=== PATIENT | female | born 1945 | race Caucasian/White ===

== ENCOUNTER 2018-11-18 08:00 | Inpatient (IN) ==
[2018-11-18] MEDS ORDERED: PROPOFOL 1,000 MG/100 ML BOTTLE IV ONE (08:23)
[2018-11-18] MEDS: PROPOFOL 1,000 MG/100 ML BOTTLE IV SCH ×2 (08:27→20:04)
[2018-11-18] MEDS ORDERED: MEROPENEM 1,000 MG in SODIUM CHLORIDE 0.9% 100 ML IV STA (08:58)
[2018-11-18 09:01] LABS: ABG Base Excess 5.5 MMOL/L (-2.5-2.5); ABG HCO3 28.3 MMOL/L (20-26); ABG Oxygen Saturation 99.2 % (95-100); ABG PH 7.525 (7.35-7.45); ABG PO2 179.7 MM HG (80-95); ABG TCO2 29.3 MMOL/L (23-27)
[2018-11-18] MEDS ORDERED: ONDANSETRON 4 MG/2 ML VIAL IV PRN (09:20)
[2018-11-18] MEDS ORDERED: ACETAMINOPHEN 325 MG TABLET PO PRN (09:20)
[2018-11-18] MEDS ORDERED: ALBUTEROL 2.5 MG/3 ML NEB RESP TX PRN (09:20)
[2018-11-18] MEDS ORDERED: PROPOFOL 1,000 MG/100 ML BOTTLE IV SCH (09:30)
[2018-11-18] MEDS: LACTATED RINGERS 1,000 ML IV SCH ×2 (10:51→20:51)
[2018-11-18] MEDS: PANTOPRAZOLE 40 MG VIAL IV SCH (10:52)
[2018-11-18 11:04] LABS: Calcium 8.1 MG/DL (8.5-10.1); Osmolality,Calculated 270.5 MOS/KG (273-304); Potassium 3.6 MMOL/L (3.5-5.1)
[2018-11-18 12:15] LABS: Basophils % 0.2 % (0.0-0.8); Hemoglobin 12.3 GM/DL (12.0-16.0); Immature Granulocytes % 0.6 %; Immature Granulocytes Absolute 0.09 #; Lymphocytes # 0.6 10*3/uL (1.4-4.0); Lymphocytes % 4.1 % (21.3-54.2); Mean Corpuscular HGB Conc 30.8 GM/DL (32-36); Mean Corpuscular Hemoglobin 28 PG (27-34); Mean Corpuscular Volume 91.1 FL (87-102); Mean Platelet Volume 10.2 FL (9.6-12.0); Monocytes # 1.5 10*3/uL (0.11-0.8); Neutrophils # 12.7 10*3/uL (1.4-7.4); Neutrophils % 85.1 % (38.7-73.9); Platelet Count 207 T/CUMM (130-400); Red Blood Count 4.39 MC/CUMM (3.8-5.5); Red Cell Distribution Width 13.3 % (9.3-17.3); White Blood Count 14.9 T/CUMM (4-12)
[2018-11-18 12:29] LABS: Albumin 2.5 G/DL (3.4-5.0); Bilirubin,Total 0.7 MG/DL (0.2-1.0); Calcium 8.7 MG/DL (8.5-10.1); Osmolality,Calculated 267.7 MOS/KG (273-304); Potassium 4.3 MMOL/L (3.5-5.1); Total Protein 6.7 G/DL (6.4-8.3)
[2018-11-18] MEDS: CLINDAMYCIN INJ 300 MG in PREMIX 1 EACH IV SCH ×2 (12:32→20:13)
[2018-11-18] MEDS: ALBUTEROL/IPRATROPIUM 3 ML NEB RESP TX SCH ×2 (12:41→19:43)
[2018-11-18 12:46] LABS: Band Neutrophils 31 % (0-10); Lymphocytes 1 % (20-55); Platelet Estimate Normal; Segmented Neutrophils 58 % (50-85); Total Cells Counted 100
[2018-11-18] MEDS ORDERED: LACTATED RINGERS 500 ML IV ONE ×2 (13:03→16:01)
[2018-11-18] MEDS ORDERED: GLUCAGON 1 MG VIAL IM PRN (13:08)
[2018-11-18] MEDS ORDERED: DEXTROSE 50% 25 GM/50 ML SYRINGE IV PRN (13:08)
[2018-11-18] MEDS: OSELTAMIVIR 6 MG/ML 60 ML/BOTTLE PO SCH ×2 (14:16→21:14)
[2018-11-18] MEDS: VANCOMYCIN INJ 1,250 MG in SODIUM CHLORIDE 0.9% 250 ML IV SCH (14:16)
[2018-11-18] MEDS ORDERED: MAGNESIUM SULF RIDER 2 GM in PREMIX 1 EACH IV ONE (14:40)
[2018-11-18] MEDS: busPIRone 10 MG TABLET PO SCH ×2 (15:22→21:14)
[2018-11-18 16:11] LABS: ABG Base Excess 6.8 MMOL/L (-2.5-2.5); ABG HCO3 30.6 MMOL/L (20-26); ABG Oxygen Saturation 99.5 % (95-100); ABG PCO2 43.4 MM HG (35-48); ABG PH 7.466 (7.35-7.45); ABG TCO2 27.7 MMOL/L (23-27); Allen Test Positive; Pt O2 Delivery Device Ventilator
[2018-11-18] MEDS ORDERED: MORPHINE 4 MG/1 ML VIAL IV ONE (17:15)
[2018-11-18] MEDS ORDERED: HEPARIN/NACL 0.9% 2 UNITS/ML 500 ML IV ONE (17:15)
[2018-11-18] MEDS ORDERED: LACTATED RINGERS 1,500 ML IV ONE (17:44)
[2018-11-18] MEDS ORDERED: NOREPINEPHRINE 8 MG in SODIUM CHLORIDE 0.9% 242 ML IV PRN (17:53)
[2018-11-18] MEDS: HEPARIN/NACL 0.9% 2 UNITS/ML 500 ML IV SCH (18:07)
[2018-11-18] MEDS: INSULIN REGULAR 100 UNIT/ML SUBCUT SCH (18:08)
[2018-11-18 18:16] LABS: Albumin 2.7 G/DL (3.4-5.0); Bilirubin,Total 0.7 MG/DL (0.2-1.0); Calcium 8.9 MG/DL (8.5-10.1); Osmolality,Calculated 264.8 MOS/KG (273-304); Potassium 4.3 MMOL/L (3.5-5.1); Total Protein 7.1 G/DL (6.4-8.3)
[2018-11-18 18:16] LABS: Basophils % 0.2 % (0.0-0.8); Hematocrit 31.6 VOL% (35.7-47.0); Hemoglobin 9.9 GM/DL (12.0-16.0); Immature Granulocytes % 0.6 %; Immature Granulocytes Absolute 0.07 #; Lymphocytes # 0.6 10*3/uL (1.4-4.0); Lymphocytes % 5.2 % (21.3-54.2); Mean Corpuscular HGB Conc 31.3 GM/DL (32-36); Mean Corpuscular Hemoglobin 28 PG (27-34); Mean Corpuscular Volume 89.3 FL (87-102); Mean Platelet Volume 10.2 FL (9.6-12.0); Monocytes # 1.1 10*3/uL (0.11-0.8); Monocytes % 8.6 % (1.7-12.7); Neutrophils # 10.5 10*3/uL (1.4-7.4); Neutrophils % 85.4 % (38.7-73.9); Platelet Count 186 T/CUMM (130-400); Red Blood Count 3.54 MC/CUMM (3.8-5.5); Red Cell Distribution Width 13.3 % (9.3-17.3); White Blood Count 12.2 T/CUMM (4-12)
[2018-11-18] MEDS: ENOXAPARIN 40 MG/0.4 ML SYRINGE SUBCUT SCH (21:13)
[2018-11-18] MEDS: MEROPENEM 500 MG in SODIUM CHLORIDE 0.9% 100 ML IV SCH (21:14)
[2018-11-19] MEDS: ALBUTEROL/IPRATROPIUM 3 ML NEB RESP TX SCH ×4 (00:05→18:50)
[2018-11-19] MEDS: INSULIN REGULAR 100 UNIT/ML SUBCUT SCH ×4 (00:46→18:19)
[2018-11-19] MEDS: CLINDAMYCIN INJ 300 MG in PREMIX 1 EACH IV SCH ×3 (04:01→21:07)
[2018-11-19 04:37] LABS: Pt O2 Delivery Device Ventilator
[2018-11-19 04:43] LABS: ABG Base Excess 7.3 MMOL/L (-2.5-2.5); ABG HCO3 31.2 MMOL/L (20-26); ABG PCO2 42.7 MM HG (35-48); ABG PH 7.478 (7.35-7.45); ABG TCO2 28.2 MMOL/L (23-27)
[2018-11-19] MEDS: PROPOFOL 1,000 MG/100 ML BOTTLE IV SCH ×2 (05:11→10:21)
[2018-11-19 06:41] LABS: Basophils % 0.2 % (0.0-0.8); Eosinophils % 0.1 % (0.00-10.9); Hematocrit 33.7 VOL% (35.7-47.0); Hemoglobin 10.8 GM/DL (12.0-16.0); Immature Granulocytes % 0.6 %; Immature Granulocytes Absolute 0.05 #; Lymphocytes % 11.1 % (21.3-54.2); Mean Corpuscular Hemoglobin 28 PG (27-34); Mean Platelet Volume 10.6 FL (9.6-12.0); Monocytes # 0.9 10*3/uL (0.11-0.8); Monocytes % 10.4 % (1.7-12.7); Neutrophils # 7.1 10*3/uL (1.4-7.4); Neutrophils % 77.6 % (38.7-73.9); Platelet Count 184 T/CUMM (130-400); Red Blood Count 3.83 MC/CUMM (3.8-5.5); Red Cell Distribution Width 13.4 % (9.3-17.3); White Blood Count 9.1 T/CUMM (4-12)
[2018-11-19] MEDS: VANCOMYCIN INJ 1,250 MG in SODIUM CHLORIDE 0.9% 250 ML IV SCH (06:42)
[2018-11-19 06:53] LABS: Albumin 1.9 G/DL (3.4-5.0); Bilirubin,Total 0.4 MG/DL (0.2-1.0); Calcium 7.7 MG/DL (8.5-10.1); Osmolality,Calculated 270.2 MOS/KG (273-304); Potassium 3.3 MMOL/L (3.5-5.1); Total Protein 5.3 G/DL (6.4-8.3)
[2018-11-19] MEDS ORDERED: MAGNESIUM SULF RIDER 2 GM in PREMIX 1 EACH IV ONE (07:45)
[2018-11-19] MEDS: PANTOPRAZOLE 40 MG VIAL IV SCH (09:25)
[2018-11-19] MEDS: OSELTAMIVIR 6 MG/ML 60 ML/BOTTLE PO SCH ×2 (09:25→21:09)
[2018-11-19] MEDS: methylPREDNISolone SOD SUC 40 MG/1 ML VIAL IV SCH ×2 (09:25→15:50)
[2018-11-19] MEDS: POTASSIUM CHLORIDE 20 MEQ/15 ML UDCUP PO SCH (09:25)
[2018-11-19] MEDS: busPIRone 10 MG TABLET PO SCH ×3 (09:25→21:08)
[2018-11-19] MEDS: LACTATED RINGERS 1,000 ML IV SCH ×2 (09:39→21:33)
[2018-11-19] MEDS: DEXMEDETOMIDINE 200 MCG in SODIUM CHLORIDE 0.9% 48 ML IV PRN ×4 (09:54→22:51)
[2018-11-19] MEDS: MEROPENEM 500 MG in SODIUM CHLORIDE 0.9% 100 ML IV SCH ×2 (10:51→21:33)
[2018-11-19] MEDS: LOSARTAN 50 MG TABLET PO SCH (21:07)
[2018-11-19] MEDS: ENOXAPARIN 40 MG/0.4 ML SYRINGE SUBCUT SCH (21:08)
[2018-11-19] MEDS: MORPHINE 4 MG/1 ML VIAL IV PRN (21:10)
[2018-11-19] MEDS: hydrALAZINE 20 MG/1 ML VIAL IV PRN (23:15)
[2018-11-20] MEDS: HEPARIN/NACL 0.9% 2 UNITS/ML 500 ML IV SCH ×2 (00:21→18:31)
[2018-11-20] MEDS: INSULIN REGULAR 100 UNIT/ML SUBCUT SCH ×4 (00:22→18:24)
[2018-11-20] MEDS: VANCOMYCIN INJ 1,250 MG in SODIUM CHLORIDE 0.9% 250 ML IV SCH ×2 (00:27→19:12)
[2018-11-20] MEDS: methylPREDNISolone SOD SUC 40 MG/1 ML VIAL IV SCH ×3 (00:56→16:34)
[2018-11-20] MEDS: ALBUTEROL/IPRATROPIUM 3 ML NEB RESP TX SCH ×4 (01:20→19:18)
[2018-11-20] MEDS: PROPOFOL 1,000 MG/100 ML BOTTLE IV SCH ×3 (01:29→18:45)
[2018-11-20] MEDS: DEXMEDETOMIDINE 200 MCG in SODIUM CHLORIDE 0.9% 48 ML IV PRN ×4 (04:12→20:18)
[2018-11-20] MEDS: CLINDAMYCIN INJ 300 MG in PREMIX 1 EACH IV SCH ×3 (04:50→20:42)
[2018-11-20 05:02] LABS: ABG Base Excess 7.7 MMOL/L (-2.5-2.5); ABG HCO3 31.5 MMOL/L (20-26); ABG PCO2 41.1 MM HG (35-48); ABG PH 7.495 (7.35-7.45); ABG TCO2 27.6 MMOL/L (23-27); Allen Test Positive; Pt O2 Delivery Device Ventilator
[2018-11-20 05:06] LABS: Hematocrit 36.2 VOL% (35.7-47.0); Hemoglobin 11.9 GM/DL (12.0-16.0); Immature Granulocytes % 0.3 %; Immature Granulocytes Absolute 0.02 #; Lymphocytes # 0.4 10*3/uL (1.4-4.0); Lymphocytes % 4.9 % (21.3-54.2); Mean Corpuscular HGB Conc 32.9 GM/DL (32-36); Mean Corpuscular Hemoglobin 28 PG (27-34); Mean Platelet Volume 10.6 FL (9.6-12.0); Monocytes # 0.3 10*3/uL (0.11-0.8); Monocytes % 4.2 % (1.7-12.7); Neutrophils # 6.6 10*3/uL (1.4-7.4); Neutrophils % 90.6 % (38.7-73.9); Platelet Count 195 T/CUMM (130-400); Red Blood Count 4.26 MC/CUMM (3.8-5.5); Red Cell Distribution Width 13.3 % (9.3-17.3); White Blood Count 7.3 T/CUMM (4-12)
[2018-11-20 05:30] LABS: Band Neutrophils 6 % (0-10); Hypochromasia 1+; Lymphocytes 8 % (20-55); Platelet Estimate Adequate; Segmented Neutrophils 83 % (50-85); Total Cells Counted 100
[2018-11-20] MEDS: hydrALAZINE 20 MG/1 ML VIAL IV PRN ×2 (06:51→22:29)
[2018-11-20] MEDS ORDERED: FUROSEMIDE 40 MG/4 ML VIAL IV ONE (07:07)
[2018-11-20] MEDS: LACTATED RINGERS 1,000 ML IV SCH ×2 (08:44→20:31)
[2018-11-20] MEDS: POTASSIUM CHLORIDE 20 MEQ/15 ML UDCUP PO SCH (08:52)
[2018-11-20] MEDS: LOSARTAN 50 MG TABLET PO SCH (08:52)
[2018-11-20] MEDS: OSELTAMIVIR 6 MG/ML 60 ML/BOTTLE PO SCH ×2 (08:59→20:33)
[2018-11-20] MEDS: busPIRone 10 MG TABLET PO SCH ×3 (08:59→20:32)
[2018-11-20] MEDS: MEROPENEM 500 MG in SODIUM CHLORIDE 0.9% 100 ML IV SCH ×2 (09:30→20:47)
[2018-11-20] MEDS: PANTOPRAZOLE 40 MG VIAL IV SCH (09:34)
[2018-11-20] MEDS: ENOXAPARIN 40 MG/0.4 ML SYRINGE SUBCUT SCH (20:32)
[2018-11-21] MEDS: ALBUTEROL/IPRATROPIUM 3 ML NEB RESP TX SCH ×4 (00:11→19:27)
[2018-11-21] MEDS: INSULIN REGULAR 100 UNIT/ML SUBCUT SCH ×4 (00:45→18:27)
[2018-11-21] MEDS: PROPOFOL 1,000 MG/100 ML BOTTLE IV SCH ×3 (01:29→21:52)
[2018-11-21] MEDS: methylPREDNISolone SOD SUC 40 MG/1 ML VIAL IV SCH ×3 (01:57→16:48)
[2018-11-21 04:05] LABS: ABG Base Excess 10.9 MMOL/L (-2.5-2.5); ABG HCO3 34.2 MMOL/L (20-26); ABG Oxygen Saturation 95.9 % (95-100); ABG PCO2 39.9 MM HG (35-48); ABG PH 7.551 (7.35-7.45); ABG TCO2 35.4 MMOL/L (23-27); Allen Test Positive; Pt O2 Delivery Device Ventilator
[2018-11-21] MEDS: CLINDAMYCIN INJ 300 MG in PREMIX 1 EACH IV SCH ×4 (05:04→22:12)
[2018-11-21 05:54] LABS: Calcium 8.4 MG/DL (8.5-10.1); Osmolality,Calculated 276.8 MOS/KG (273-304); Potassium 3.4 MMOL/L (3.5-5.1)
[2018-11-21] MEDS: LACTATED RINGERS 1,000 ML IV SCH ×2 (06:29→18:12)
[2018-11-21] MEDS ORDERED: MAGNESIUM SULF RIDER 4 GM in PREMIX 1 EACH IV ONE (08:03)
[2018-11-21] MEDS: DEXMEDETOMIDINE 200 MCG in SODIUM CHLORIDE 0.9% 48 ML IV PRN ×2 (09:15→22:19)
[2018-11-21] MEDS: busPIRone 10 MG TABLET PO SCH ×3 (09:16→21:54)
[2018-11-21] MEDS: LOSARTAN 50 MG TABLET PO SCH (09:17)
[2018-11-21] MEDS: POTASSIUM CHLORIDE 20 MEQ/15 ML UDCUP PO SCH (09:17)
[2018-11-21] MEDS: OSELTAMIVIR 6 MG/ML 60 ML/BOTTLE PO SCH ×2 (09:17→21:56)
[2018-11-21] MEDS: VANCOMYCIN INJ 1,250 MG in SODIUM CHLORIDE 0.9% 250 ML IV SCH ×2 (09:26→21:54)
[2018-11-21] MEDS: RANITIDINE 150 MG/10 ML 30 ML BOTTLE PER TUBE SCH ×2 (09:44→22:13)
[2018-11-21] MEDS ORDERED: BISACODYL 10 MG SUPP RECTAL PRN (09:50)
[2018-11-21] MEDS: MEROPENEM 500 MG in SODIUM CHLORIDE 0.9% 100 ML IV SCH ×2 (10:06→21:55)
[2018-11-21] MEDS: HEPARIN/NACL 0.9% 2 UNITS/ML 500 ML IV SCH (18:34)
[2018-11-21] MEDS: ENOXAPARIN 40 MG/0.4 ML SYRINGE SUBCUT SCH (21:54)
[2018-11-22] MEDS: ALBUTEROL/IPRATROPIUM 3 ML NEB RESP TX SCH ×4 (00:34→19:26)
[2018-11-22] MEDS: INSULIN REGULAR 100 UNIT/ML SUBCUT SCH ×4 (00:35→18:08)
[2018-11-22] MEDS: methylPREDNISolone SOD SUC 40 MG/1 ML VIAL IV SCH ×3 (00:36→16:12)
[2018-11-22 03:28] LABS: ABG Base Excess 8.3 MMOL/L (-2.5-2.5); ABG Oxygen Saturation 97.2 % (95-100); ABG PCO2 40.1 MM HG (35-48); ABG PH 7.511 (7.35-7.45); ABG PO2 88.6 MM HG (80-95); ABG TCO2 28.4 MMOL/L (23-27); Allen Test Positive; Pt O2 Delivery Device Ventilator
[2018-11-22] MEDS: PROPOFOL 1,000 MG/100 ML BOTTLE IV SCH ×4 (05:16→20:10)
[2018-11-22] MEDS: LACTATED RINGERS 1,000 ML IV SCH ×2 (05:18→16:01)
[2018-11-22 05:45] LABS: Calcium 8.1 MG/DL (8.5-10.1); Potassium 3.8 MMOL/L (3.5-5.1)
[2018-11-22] MEDS: CLINDAMYCIN INJ 300 MG in PREMIX 1 EACH IV SCH ×3 (05:48→21:45)
[2018-11-22] MEDS: hydrALAZINE 20 MG/1 ML VIAL IV PRN (05:49)
[2018-11-22] MEDS: DEXMEDETOMIDINE 200 MCG in SODIUM CHLORIDE 0.9% 48 ML IV PRN ×2 (08:22→20:11)
[2018-11-22] MEDS: LOSARTAN 50 MG TABLET PO SCH (10:45)
[2018-11-22] MEDS: busPIRone 10 MG TABLET PO SCH ×3 (10:45→21:47)
[2018-11-22] MEDS: OSELTAMIVIR 6 MG/ML 60 ML/BOTTLE PO SCH ×2 (10:46→21:47)
[2018-11-22] MEDS: POTASSIUM CHLORIDE 20 MEQ/15 ML UDCUP PO SCH (10:46)
[2018-11-22] MEDS: RANITIDINE 150 MG/10 ML 30 ML BOTTLE PER TUBE SCH ×2 (10:50→21:48)
[2018-11-22] MEDS: VANCOMYCIN INJ 1,250 MG in SODIUM CHLORIDE 0.9% 250 ML IV SCH ×2 (10:50→23:37)
[2018-11-22] MEDS: MEROPENEM 500 MG in SODIUM CHLORIDE 0.9% 100 ML IV SCH ×2 (10:52→22:46)
[2018-11-22] MEDS ORDERED: DEXTROSE 50% 25 GM/50 ML VIAL IV PRN (12:21)
[2018-11-22] MEDS: HEPARIN/NACL 0.9% 2 UNITS/ML 500 ML IV SCH (18:02)
[2018-11-22] MEDS: ENOXAPARIN 40 MG/0.4 ML SYRINGE SUBCUT SCH (21:47)
[2018-11-23] MEDS: ALBUTEROL/IPRATROPIUM 3 ML NEB RESP TX SCH ×4 (00:02→18:58)
[2018-11-23] MEDS: MORPHINE 4 MG/1 ML VIAL IV PRN (00:30)
[2018-11-23] MEDS: methylPREDNISolone SOD SUC 40 MG/1 ML VIAL IV SCH ×3 (02:17→16:43)
[2018-11-23] MEDS: LACTATED RINGERS 1,000 ML IV SCH ×2 (03:30→16:45)
[2018-11-23] MEDS: CLINDAMYCIN INJ 300 MG in PREMIX 1 EACH IV SCH ×2 (04:00→12:52)
[2018-11-23 04:53] LABS: ABG Base Excess 0.2 MMOL/L (-2.5-2.5); ABG HCO3 24.6 MMOL/L (20-26); ABG Oxygen Saturation 98.3 % (95-100); ABG PCO2 37.6 MM HG (35-48); ABG TCO2 21.5 MMOL/L (23-27)
[2018-11-23] MEDS: INSULIN REGULAR 100 UNIT/ML SUBCUT SCH ×4 (05:10→18:11)
[2018-11-23] MEDS: PROPOFOL 1,000 MG/100 ML BOTTLE IV SCH ×3 (05:10→11:17)
[2018-11-23] MEDS: DEXMEDETOMIDINE 200 MCG in SODIUM CHLORIDE 0.9% 48 ML IV PRN (05:11)
[2018-11-23 06:04] LABS: Basophils % 0.3 % (0.0-0.8); Hematocrit 35.7 VOL% (35.7-47.0); Hemoglobin 11.4 GM/DL (12.0-16.0); Immature Granulocytes % 4.9 %; Immature Granulocytes Absolute 0.42 #; Lymphocytes # 0.9 10*3/uL (1.4-4.0); Lymphocytes % 10.1 % (21.3-54.2); Mean Corpuscular HGB Conc 31.9 GM/DL (32-36); Mean Corpuscular Hemoglobin 28 PG (27-34); Mean Corpuscular Volume 86.4 FL (87-102); Mean Platelet Volume 10.5 FL (9.6-12.0); Monocytes # 0.6 10*3/uL (0.11-0.8); Monocytes % 7.1 % (1.7-12.7); Neutrophils # 6.7 10*3/uL (1.4-7.4); Neutrophils % 77.6 % (38.7-73.9); Platelet Count 232 T/CUMM (130-400); Red Blood Count 4.13 MC/CUMM (3.8-5.5); White Blood Count 8.6 T/CUMM (4-12)
[2018-11-23 06:14] LABS: Calcium 8.1 MG/DL (8.5-10.1); Osmolality,Calculated 281.7 MOS/KG (273-304); Potassium 3.6 MMOL/L (3.5-5.1)
[2018-11-23 06:18] LABS: Prealbumin 22.4 MG/DL (20-40)
[2018-11-23] MEDS: LOSARTAN 50 MG TABLET PO SCH (09:21)
[2018-11-23] MEDS: POTASSIUM CHLORIDE 20 MEQ/15 ML UDCUP PO SCH (09:21)
[2018-11-23] MEDS: busPIRone 10 MG TABLET PO SCH ×3 (09:21→22:01)
[2018-11-23] MEDS: MEROPENEM 500 MG in SODIUM CHLORIDE 0.9% 100 ML IV SCH ×2 (09:22→22:01)
[2018-11-23] MEDS: RANITIDINE 150 MG/10 ML 30 ML BOTTLE PER TUBE SCH (09:22)
[2018-11-23] MEDS: VANCOMYCIN INJ 1,250 MG in SODIUM CHLORIDE 0.9% 250 ML IV SCH ×2 (11:18→23:53)
[2018-11-23] MEDS ORDERED: diphenhydrAMINE 25 MG/10 ML UDCUP PO PRN (16:48)
[2018-11-23] MEDS ORDERED: HYDROmorphone 2 MG/1 ML VIAL IV PRN (17:23)
[2018-11-23] MEDS: HEPARIN/NACL 0.9% 2 UNITS/ML 500 ML IV SCH (18:11)
[2018-11-23] MEDS: ENOXAPARIN 40 MG/0.4 ML SYRINGE SUBCUT SCH (22:01)
[2018-11-24] MEDS: LACTATED RINGERS 1,000 ML IV SCH ×3 (00:06→17:15)
[2018-11-24] MEDS: methylPREDNISolone SOD SUC 40 MG/1 ML VIAL IV SCH ×3 (00:06→16:36)
[2018-11-24] MEDS: INSULIN REGULAR 100 UNIT/ML SUBCUT SCH ×4 (00:06→18:11)
[2018-11-24] MEDS: ALBUTEROL/IPRATROPIUM 3 ML NEB RESP TX SCH ×4 (00:21→19:04)
[2018-11-24] MEDS: PROPOFOL 1,000 MG/100 ML BOTTLE IV SCH (03:26)
[2018-11-24 04:35] LABS: ABG Base Excess -0.7 MMOL/L (-2.5-2.5); ABG HCO3 23.8 MMOL/L (20-26); ABG Oxygen Saturation 97.4 % (95-100); ABG PCO2 38.3 MM HG (35-48); ABG PH 7.401 (7.35-7.45); ABG PO2 98.9 MM HG (80-95); ABG TCO2 21.1 MMOL/L (23-27); Allen Test Positive
[2018-11-24 06:31] LABS: Basophils % 0.3 % (0.0-0.8); Hematocrit 35.2 VOL% (35.7-47.0); Hemoglobin 11.3 GM/DL (12.0-16.0); Immature Granulocytes Absolute 0.81 #; Lymphocytes # 0.9 10*3/uL (1.4-4.0); Lymphocytes % 7.6 % (21.3-54.2); Mean Corpuscular HGB Conc 32.1 GM/DL (32-36); Mean Corpuscular Hemoglobin 28 PG (27-34); Mean Corpuscular Volume 87.6 FL (87-102); Mean Platelet Volume 10.5 FL (9.6-12.0); Monocytes # 0.9 10*3/uL (0.11-0.8); Monocytes % 7.4 % (1.7-12.7); Neutrophils # 8.9 10*3/uL (1.4-7.4); Neutrophils % 77.7 % (38.7-73.9); Platelet Count 293 T/CUMM (130-400); Red Blood Count 4.02 MC/CUMM (3.8-5.5); Red Cell Distribution Width 14.1 % (9.3-17.3); White Blood Count 11.5 T/CUMM (4-12)
[2018-11-24 06:51] LABS: Calcium 8.3 MG/DL (8.5-10.1); Osmolality,Calculated 284.5 MOS/KG (273-304); Potassium 3.6 MMOL/L (3.5-5.1)
[2018-11-24 06:54] LABS: Lymphocytes 3 % (20-55); Platelet Estimate Normal; Segmented Neutrophils 92 % (50-85); Total Cells Counted 100
[2018-11-24] MEDS: MEROPENEM 500 MG in SODIUM CHLORIDE 0.9% 100 ML IV SCH ×2 (09:32→20:45)
[2018-11-24] MEDS: busPIRone 10 MG TABLET PO SCH ×3 (09:39→20:45)
[2018-11-24] MEDS: LOSARTAN 50 MG TABLET PO SCH (09:39)
[2018-11-24] MEDS: POTASSIUM CHLORIDE 20 MEQ/15 ML UDCUP PO SCH (09:40)
[2018-11-24] MEDS: PANTOPRAZOLE 40 MG VIAL IV SCH (09:46)
[2018-11-24] MEDS: VANCOMYCIN INJ 1,250 MG in SODIUM CHLORIDE 0.9% 250 ML IV SCH ×2 (14:43→21:33)
[2018-11-24] MEDS: hydrALAZINE 20 MG/1 ML VIAL IV PRN (15:15)
[2018-11-24] MEDS: ENOXAPARIN 40 MG/0.4 ML SYRINGE SUBCUT SCH (20:44)
[2018-11-25] MEDS: INSULIN REGULAR 100 UNIT/ML SUBCUT SCH ×4 (00:34→19:01)
[2018-11-25] MEDS: ALBUTEROL/IPRATROPIUM 3 ML NEB RESP TX SCH ×4 (00:37→19:01)
[2018-11-25] MEDS: methylPREDNISolone SOD SUC 40 MG/1 ML VIAL IV SCH ×2 (00:37→09:54)
[2018-11-25] MEDS: LACTATED RINGERS 1,000 ML IV SCH ×2 (05:04→16:03)
[2018-11-25 05:30] LABS: Albumin 2.4 G/DL (3.4-5.0); Bilirubin,Total 1.1 MG/DL (0.2-1.0); Calcium 8.4 MG/DL (8.5-10.1); Osmolality,Calculated 285.5 MOS/KG (273-304); Potassium 3.6 MMOL/L (3.5-5.1); Total Protein 5.8 G/DL (6.4-8.3)
[2018-11-25] MEDS: POTASSIUM CHLORIDE 20 MEQ/15 ML UDCUP PO SCH (09:54)
[2018-11-25] MEDS: LOSARTAN 50 MG TABLET PO SCH (09:54)
[2018-11-25] MEDS: busPIRone 10 MG TABLET PO SCH ×3 (09:54→20:04)
[2018-11-25] MEDS ORDERED: FAMOTIDINE 20 MG TABLET PO SCH (10:00)
[2018-11-25] MEDS ORDERED: methylPREDNISolone SOD SUC 40 MG/1 ML VIAL IV SCH (10:00)
[2018-11-25] MEDS: MEROPENEM 500 MG in SODIUM CHLORIDE 0.9% 100 ML IV SCH ×2 (10:01→21:43)
[2018-11-25] MEDS: PANTOPRAZOLE 40 MG VIAL IV SCH (10:09)
[2018-11-25] MEDS: RANITIDINE 150 MG/10 ML 30 ML BOTTLE PO SCH (10:10)
[2018-11-25] MEDS: VANCOMYCIN INJ 1,250 MG in SODIUM CHLORIDE 0.9% 250 ML IV SCH (20:03)
[2018-11-25] MEDS: ENOXAPARIN 40 MG/0.4 ML SYRINGE SUBCUT SCH (20:04)
[2018-11-26] MEDS: INSULIN REGULAR 100 UNIT/ML SUBCUT SCH ×4 (00:11→17:52)
[2018-11-26] MEDS: ALBUTEROL/IPRATROPIUM 3 ML NEB RESP TX SCH ×4 (00:53→19:19)
[2018-11-26] MEDS: LACTATED RINGERS 1,000 ML IV SCH ×2 (03:16→13:16)
[2018-11-26] MEDS: RANITIDINE 150 MG/10 ML 30 ML BOTTLE PO SCH (09:10)
[2018-11-26] MEDS: busPIRone 10 MG TABLET PO SCH ×3 (09:11→20:24)
[2018-11-26] MEDS: POTASSIUM CHLORIDE 20 MEQ/15 ML UDCUP PO SCH (09:11)
[2018-11-26] MEDS: LOSARTAN 50 MG TABLET PO SCH (09:11)
[2018-11-26] MEDS: VANCOMYCIN INJ 1,250 MG in SODIUM CHLORIDE 0.9% 250 ML IV SCH (20:24)
[2018-11-26] MEDS: ENOXAPARIN 40 MG/0.4 ML SYRINGE SUBCUT SCH (20:24)
[2018-11-27] MEDS: LACTATED RINGERS 1,000 ML IV SCH (00:46)
[2018-11-27] MEDS: ALBUTEROL/IPRATROPIUM 3 ML NEB RESP TX SCH ×4 (01:06→19:10)
[2018-11-27] MEDS: INSULIN REGULAR 100 UNIT/ML SUBCUT SCH ×4 (01:08→18:27)
[2018-11-27 05:57] LABS: Prealbumin 22.5 MG/DL (20-40)
[2018-11-27 08:51] LABS: Basophils % 0.1 % (0.0-0.8); Eosinophils # 0.1 10*3/uL (0.0-0.87); Eosinophils % 0.9 % (0.00-10.9); Hematocrit 31.2 VOL% (35.7-47.0); Hemoglobin 9.6 GM/DL (12.0-16.0); Lymphocytes # 1.2 10*3/uL (1.4-4.0); Lymphocytes % 11.5 % (21.3-54.2); Mean Corpuscular HGB Conc 30.8 GM/DL (32-36); Mean Corpuscular Hemoglobin 28 PG (27-34); Mean Corpuscular Volume 91.5 FL (87-102); Mean Platelet Volume 10.7 FL (9.6-12.0); Monocytes # 0.9 10*3/uL (0.11-0.8); Monocytes % 9.4 % (1.7-12.7); Neutrophils # 7.7 10*3/uL (1.4-7.4); Neutrophils % 77.1 % (38.7-73.9); Platelet Count 204 T/CUMM (130-400); Red Blood Count 3.41 MC/CUMM (3.8-5.5); Red Cell Distribution Width 14.5 % (9.3-17.3)
[2018-11-27 09:00] LABS: Calcium 8.1 MG/DL (8.5-10.1); Osmolality,Calculated 286.1 MOS/KG (273-304); Potassium 3.5 MMOL/L (3.5-5.1)
[2018-11-27] MEDS: busPIRone 10 MG TABLET PO SCH ×3 (09:22→20:27)
[2018-11-27] MEDS: LOSARTAN 50 MG TABLET PO SCH (09:22)
[2018-11-27] MEDS: RANITIDINE 150 MG/10 ML 30 ML BOTTLE PO SCH (09:24)
[2018-11-27] MEDS: POTASSIUM CHLORIDE 20 MEQ/15 ML UDCUP PO SCH (09:27)
[2018-11-27] MEDS ORDERED: FUROSEMIDE 40 MG/4 ML VIAL IV STA (09:48)
[2018-11-27 14:09] LABS: ABG HCO3 26.2 MMOL/L (20-26); ABG Oxygen Saturation 97.6 % (95-100); ABG TCO2 32.5 MMOL/L (23-27)
[2018-11-27 14:11] LABS: ABG PH 7.142 (7.35-7.45)
[2018-11-27] MEDS ORDERED: TUBERCULIN SKIN TEST 0.1 ML SYRINGE INTRADERM ONE (15:00)
[2018-11-27] MEDS ORDERED: ETOMIDATE 20 MG/10 ML VIAL IV ONE ×2 (15:05)
[2018-11-27] MEDS ORDERED: SUCCINYLCHOLINE 200 MG/10 ML VIAL ONE (15:05)
[2018-11-27] MEDS: PROPOFOL 1,000 MG/100 ML BOTTLE IV SCH ×2 (15:11→20:25)
[2018-11-27] MEDS ORDERED: PROPOFOL 1,000 MG/100 ML BOTTLE IV ONE (15:19)
[2018-11-27] MEDS ORDERED: FUROSEMIDE 40 MG/4 ML VIAL IV ONE (15:20)
[2018-11-27] MEDS ORDERED: VANCOMYCIN INJ 1,250 MG in SODIUM CHLORIDE 0.9% 250 ML IV SCH (15:30)
[2018-11-27 15:52] LABS: ABG HCO3 27.1 MMOL/L (20-26); ABG Oxygen Saturation 99.5 % (95-100); ABG PH 7.226 (7.35-7.45); ABG TCO2 30.6 MMOL/L (23-27)
[2018-11-27 15:54] LABS: ABG PCO2 79.8 MM HG (35-48)
[2018-11-27] MEDS ORDERED: SODIUM CHLORIDE 0.9% 250 ML IV ONE (17:08)
[2018-11-27 17:14] LABS: Apearance,Urine CLEAR (Clear); Bilirubin,Urine Negative (Negative); Blood, Urine Moderate mg/dL (Negative); Glucose,Urine (UA) Negative (Negative); Hyaline Casts,Urine 1 /LPF (0-3); Ketones,Urine Negative (Negative); Mucus,Urine Occasional /LPF (Occasional); Nitrite,Urine Negative (Negative); Protein,Urine Negative; RBC,Urine 5 /HPF (0-4); Squamous Epithelial Cell,Urine Occasional /HPF (0-10); Urine Color Yellow (Yellow); Urine Specific Gravity 1.011 (1.001-1.035); Urine Urobilinogen < 2.0 EU/DL (0.2-1.0); WBC,Urine 1 /HPF (0-6)
[2018-11-27] MEDS: methylPREDNISolone SOD SUC 40 MG/1 ML VIAL IV SCH (17:33)
[2018-11-27] MEDS: PIPERACILLIN/TAZOBACTAM 3,375 MG in SODIUM CHLORIDE 0.9% 100 ML IV SCH (17:42)
[2018-11-27] MEDS: SODIUM CHLORIDE 0.9% 1,000 ML IV SCH (17:43)
[2018-11-27] MEDS: ENOXAPARIN 40 MG/0.4 ML SYRINGE SUBCUT SCH (20:26)
[2018-11-28] MEDS: PIPERACILLIN/TAZOBACTAM 3,375 MG in SODIUM CHLORIDE 0.9% 100 ML IV SCH ×4 (00:13→23:13)
[2018-11-28] MEDS: INSULIN REGULAR 100 UNIT/ML SUBCUT SCH ×4 (00:54→17:39)
[2018-11-28] MEDS: methylPREDNISolone SOD SUC 40 MG/1 ML VIAL IV SCH ×3 (01:08→16:48)
[2018-11-28] MEDS: PROPOFOL 1,000 MG/100 ML BOTTLE IV SCH ×5 (01:30→22:07)
[2018-11-28] MEDS: ALBUTEROL/IPRATROPIUM 3 ML NEB RESP TX SCH ×4 (02:06→19:12)
[2018-11-28] MEDS: SODIUM CHLORIDE 0.9% 1,000 ML IV SCH (02:42)
[2018-11-28 04:15] LABS: ABG Base Excess 11.5 MMOL/L (-2.5-2.5); ABG HCO3 35.3 MMOL/L (20-26); ABG Oxygen Saturation 99.8 % (95-100); ABG PCO2 44.9 MM HG (35-48); ABG PH 7.512 (7.35-7.45); ABG TCO2 32.4 MMOL/L (23-27); Allen Test Positive; Pt O2 Delivery Device Ventilator
[2018-11-28] MEDS ORDERED: FUROSEMIDE 40 MG/4 ML VIAL IV ONE (08:24)
[2018-11-28] MEDS: LOSARTAN 50 MG TABLET PO SCH (09:25)
[2018-11-28] MEDS: busPIRone 10 MG TABLET PO SCH ×3 (09:25→20:15)
[2018-11-28] MEDS: RANITIDINE 150 MG/10 ML 30 ML BOTTLE PO SCH (11:25)
[2018-11-28] MEDS ORDERED: TUBERCULIN SKIN TEST 0.1 ML SYRINGE INTRADERM ONE (14:00)
[2018-11-28] MEDS: ENOXAPARIN 40 MG/0.4 ML SYRINGE SUBCUT SCH (20:15)
[2018-11-29] MEDS: INSULIN REGULAR 100 UNIT/ML SUBCUT SCH ×4 (01:11→17:52)
[2018-11-29] MEDS: ALBUTEROL/IPRATROPIUM 3 ML NEB RESP TX SCH ×4 (01:16→19:42)
[2018-11-29] MEDS: methylPREDNISolone SOD SUC 40 MG/1 ML VIAL IV SCH ×3 (01:56→17:59)
[2018-11-29] MEDS: PROPOFOL 1,000 MG/100 ML BOTTLE IV SCH ×5 (03:51→19:01)
[2018-11-29 04:34] LABS: ABG Base Excess 15.6 MMOL/L (-2.5-2.5); ABG HCO3 39.7 MMOL/L (20-26); ABG Oxygen Saturation 99.1 % (95-100); ABG PCO2 41.3 MM HG (35-48); ABG PH 7.588 (7.35-7.45); Allen Test Positive; Pt O2 Delivery Device Ventilator
[2018-11-29] MEDS: PIPERACILLIN/TAZOBACTAM 3,375 MG in SODIUM CHLORIDE 0.9% 100 ML IV SCH ×2 (09:27→16:00)
[2018-11-29] MEDS: busPIRone 10 MG TABLET PO SCH ×3 (09:31→20:15)
[2018-11-29] MEDS: LOSARTAN 50 MG TABLET PO SCH (09:31)
[2018-11-29] MEDS: RANITIDINE 150 MG/10 ML 30 ML BOTTLE PO SCH (10:43)
[2018-11-29] MEDS ORDERED: DEXTROSE 50% 25 GM/50 ML VIAL IV PRN (16:18)
[2018-11-29] MEDS: ENOXAPARIN 40 MG/0.4 ML SYRINGE SUBCUT SCH (20:15)
[2018-11-30] MEDS: methylPREDNISolone SOD SUC 40 MG/1 ML VIAL IV SCH ×3 (00:08→18:23)
[2018-11-30] MEDS: PIPERACILLIN/TAZOBACTAM 3,375 MG in SODIUM CHLORIDE 0.9% 100 ML IV SCH ×4 (00:09→23:48)
[2018-11-30] MEDS: INSULIN REGULAR 100 UNIT/ML SUBCUT SCH ×5 (00:09→23:48)
[2018-11-30] MEDS: PROPOFOL 1,000 MG/100 ML BOTTLE IV SCH ×5 (00:10→20:30)
[2018-11-30] MEDS: ALBUTEROL/IPRATROPIUM 3 ML NEB RESP TX SCH ×4 (00:42→18:50)
[2018-11-30 04:14] LABS: Basophils % 0.1 % (0.0-0.8); Hematocrit 31.7 VOL% (35.7-47.0); Hemoglobin 10.2 GM/DL (12.0-16.0); Immature Granulocytes % 0.6 %; Immature Granulocytes Absolute 0.06 #; Lymphocytes # 0.4 10*3/uL (1.4-4.0); Mean Corpuscular HGB Conc 32.2 GM/DL (32-36); Mean Corpuscular Hemoglobin 28 PG (27-34); Mean Corpuscular Volume 86.6 FL (87-102); Mean Platelet Volume 11.3 FL (9.6-12.0); Monocytes # 0.7 10*3/uL (0.11-0.8); Monocytes % 6.5 % (1.7-12.7); Neutrophils # 8.8 10*3/uL (1.4-7.4); Neutrophils % 88.8 % (38.7-73.9); Platelet Count 223 T/CUMM (130-400); Red Blood Count 3.66 MC/CUMM (3.8-5.5); Red Cell Distribution Width 13.6 % (9.3-17.3)
[2018-11-30 04:35] LABS: Albumin 2.1 G/DL (3.4-5.0); Calcium 8.4 MG/DL (8.5-10.1); Osmolality,Calculated 285.5 MOS/KG (273-304)
[2018-11-30 04:44] LABS: Hypochromasia 1+; Lymphocytes 4 % (20-55); Platelet Estimate Adequate; Segmented Neutrophils 92 % (50-85); Total Cells Counted 100
[2018-11-30 04:45] LABS: Potassium 2.4 MMOL/L (3.5-5.1)
[2018-11-30] MEDS ORDERED: POTASSIUM CHLORIDE RIDER 10 MEQ in PREMIX 1 EACH IV PRN (04:48)
[2018-11-30] MEDS: POTASSIUM CHLORIDE RIDER 20 MEQ in PREMIX 1 EACH IV PRN ×3 (05:13→09:47)
[2018-11-30] MEDS: LOSARTAN 50 MG TABLET PO SCH (09:42)
[2018-11-30] MEDS: busPIRone 10 MG TABLET PO SCH ×3 (09:42→20:09)
[2018-11-30] MEDS: RANITIDINE 150 MG/10 ML 30 ML BOTTLE PO SCH (09:42)
[2018-11-30] MEDS: POTASSIUM CHLORIDE 20 MEQ/15 ML UDCUP PER TUBE SCH ×3 (12:40→18:45)
[2018-11-30] MEDS ORDERED: POTASSIUM CHLORIDE 20 MEQ/15 ML UDCUP ONE (18:19)
[2018-11-30] MEDS: ENOXAPARIN 40 MG/0.4 ML SYRINGE SUBCUT SCH (20:09)
[2018-12-01] MEDS: ALBUTEROL/IPRATROPIUM 3 ML NEB RESP TX SCH ×4 (01:06→19:28)
[2018-12-01] MEDS: methylPREDNISolone SOD SUC 40 MG/1 ML VIAL IV SCH ×3 (02:12→15:48)
[2018-12-01] MEDS: hydrALAZINE 20 MG/1 ML VIAL IV PRN (02:15)
[2018-12-01] MEDS: PROPOFOL 1,000 MG/100 ML BOTTLE IV SCH ×3 (02:15→17:25)
[2018-12-01 03:16] LABS: ABG Base Excess 3.1 MMOL/L (-2.5-2.5); ABG HCO3 27.2 MMOL/L (20-26); ABG Oxygen Saturation 99.2 % (95-100); ABG PCO2 38.4 MM HG (35-48); ABG PH 7.456 (7.35-7.45); Allen Test Positive; Pt O2 Delivery Device Ventilator
[2018-12-01 05:12] LABS: Calcium 8.7 MG/DL (8.5-10.1); Osmolality,Calculated 291.3 MOS/KG (273-304)
[2018-12-01] MEDS: INSULIN REGULAR 100 UNIT/ML SUBCUT SCH ×3 (06:56→18:09)
[2018-12-01] MEDS: PIPERACILLIN/TAZOBACTAM 3,375 MG in SODIUM CHLORIDE 0.9% 100 ML IV SCH ×3 (07:44→23:37)
[2018-12-01] MEDS: POTASSIUM CHLORIDE 20 MEQ/15 ML UDCUP PER TUBE PRN ×4 (09:03→17:25)
[2018-12-01] MEDS: LOSARTAN 50 MG TABLET PO SCH (09:03)
[2018-12-01] MEDS: busPIRone 10 MG TABLET PO SCH ×3 (09:03→21:45)
[2018-12-01] MEDS: RANITIDINE 150 MG/10 ML 30 ML BOTTLE PO SCH (09:04)
[2018-12-01 10:39] VITALS: BP 127/67
[2018-12-01] MEDS: ENOXAPARIN 40 MG/0.4 ML SYRINGE SUBCUT SCH (21:45)
[2018-12-02] MEDS: ALBUTEROL/IPRATROPIUM 3 ML NEB RESP TX SCH ×4 (00:15→19:15)
[2018-12-02] MEDS: POTASSIUM CHLORIDE 20 MEQ/15 ML UDCUP PER TUBE PRN ×2 (00:30→03:41)
[2018-12-02] MEDS: INSULIN REGULAR 100 UNIT/ML SUBCUT SCH ×4 (00:32→17:38)
[2018-12-02] MEDS: methylPREDNISolone SOD SUC 40 MG/1 ML VIAL IV SCH ×2 (03:08→15:37)
[2018-12-02] MEDS: PROPOFOL 1,000 MG/100 ML BOTTLE IV SCH ×3 (03:40→16:29)
[2018-12-02 04:01] LABS: Allen Test Positive; Pt O2 Delivery Device Ventilator
[2018-12-02 04:02] LABS: ABG Base Excess 1.8 MMOL/L (-2.5-2.5); ABG HCO3 25.8 MMOL/L (20-26); ABG Oxygen Saturation 98.8 % (95-100); ABG PH 7.449 (7.35-7.45); ABG PO2 147.5 MM HG (80-95); ABG TCO2 26.9 MMOL/L (23-27)
[2018-12-02] MEDS: PIPERACILLIN/TAZOBACTAM 3,375 MG in SODIUM CHLORIDE 0.9% 100 ML IV SCH ×2 (07:30→15:35)
[2018-12-02] MEDS: LOSARTAN 50 MG TABLET PO SCH (09:24)
[2018-12-02] MEDS: busPIRone 10 MG TABLET PO SCH ×3 (09:24→20:31)
[2018-12-02] MEDS: RANITIDINE 150 MG/10 ML 30 ML BOTTLE PO SCH (09:24)
[2018-12-02] MEDS: ENOXAPARIN 40 MG/0.4 ML SYRINGE SUBCUT SCH (20:31)
[2018-12-03] MEDS: ALBUTEROL/IPRATROPIUM 3 ML NEB RESP TX SCH ×4 (00:50→19:24)
[2018-12-03] MEDS: PIPERACILLIN/TAZOBACTAM 3,375 MG in SODIUM CHLORIDE 0.9% 100 ML IV SCH ×4 (00:54→23:14)
[2018-12-03] MEDS: PROPOFOL 1,000 MG/100 ML BOTTLE IV SCH ×4 (02:13→21:17)
[2018-12-03] MEDS: INSULIN REGULAR 100 UNIT/ML SUBCUT SCH ×4 (02:13→19:03)
[2018-12-03] MEDS: methylPREDNISolone SOD SUC 40 MG/1 ML VIAL IV SCH ×2 (03:32→15:18)
[2018-12-03 03:45] LABS: Calcium 8.7 MG/DL (8.5-10.1); Osmolality,Calculated 295.3 MOS/KG (273-304); Potassium 3.5 MMOL/L (3.5-5.1)
[2018-12-03 03:51] LABS: ABG HCO3 23.9 MMOL/L (20-26); ABG Oxygen Saturation 98.3 % (95-100); ABG PO2 124.1 MM HG (80-95); Allen Test Positive; Pt O2 Delivery Device Ventilator
[2018-12-03] MEDS: POTASSIUM CHLORIDE 20 MEQ/15 ML UDCUP PER TUBE PRN ×2 (05:32→13:07)
[2018-12-03] MEDS: LOSARTAN 50 MG TABLET PO SCH (09:52)
[2018-12-03] MEDS: busPIRone 10 MG TABLET PO SCH ×3 (09:53→20:01)
[2018-12-03] MEDS: RANITIDINE 150 MG/10 ML 30 ML BOTTLE PO SCH (09:54)
[2018-12-03] MEDS: ENOXAPARIN 40 MG/0.4 ML SYRINGE SUBCUT SCH (20:01)
[2018-12-04] MEDS: ALBUTEROL/IPRATROPIUM 3 ML NEB RESP TX SCH ×4 (00:29→19:39)
[2018-12-04] MEDS: INSULIN REGULAR 100 UNIT/ML SUBCUT SCH ×4 (01:19→18:01)
[2018-12-04] MEDS: methylPREDNISolone SOD SUC 40 MG/1 ML VIAL IV SCH ×2 (02:19→15:00)
[2018-12-04 03:52] LABS: Basophils % 0.1 % (0.0-0.8); Hematocrit 31.8 VOL% (35.7-47.0); Hemoglobin 9.9 GM/DL (12.0-16.0); Immature Granulocytes % 1.1 %; Immature Granulocytes Absolute 0.11 #; Lymphocytes # 0.4 10*3/uL (1.4-4.0); Lymphocytes % 3.9 % (21.3-54.2); Mean Corpuscular HGB Conc 31.1 GM/DL (32-36); Mean Corpuscular Hemoglobin 28 PG (27-34); Mean Corpuscular Volume 88.6 FL (87-102); Mean Platelet Volume 11.6 FL (9.6-12.0); Monocytes # 0.3 10*3/uL (0.11-0.8); Monocytes % 3.4 % (1.7-12.7); Neutrophils # 9.1 10*3/uL (1.4-7.4); Neutrophils % 91.5 % (38.7-73.9); Platelet Count 195 T/CUMM (130-400); Red Blood Count 3.59 MC/CUMM (3.8-5.5); Red Cell Distribution Width 14.2 % (9.3-17.3)
[2018-12-04 04:09] LABS: ABG Base Excess -0.7 MMOL/L (-2.5-2.5); ABG HCO3 23.8 MMOL/L (20-26); ABG Oxygen Saturation 98.3 % (95-100); ABG PCO2 40.1 MM HG (35-48); ABG PH 7.387 (7.35-7.45); Allen Test Positive; Pt O2 Delivery Device Ventilator
[2018-12-04 04:21] LABS: Lymphocytes 4 % (20-55); Segmented Neutrophils 94 % (50-85); Total Cells Counted 100
[2018-12-04 04:22] LABS: Anisocytosis 1+
[2018-12-04] MEDS: PROPOFOL 1,000 MG/100 ML BOTTLE IV SCH ×4 (04:22→20:38)
[2018-12-04 04:23] LABS: Platelet Estimate Adequate
[2018-12-04 05:56] LABS: Prealbumin 37.2 MG/DL (20-40)
[2018-12-04 06:37] LABS: Calcium 8.4 MG/DL (8.5-10.1); Osmolality,Calculated 294.3 MOS/KG (273-304); Potassium 3.4 MMOL/L (3.5-5.1)
[2018-12-04] MEDS: PIPERACILLIN/TAZOBACTAM 3,375 MG in SODIUM CHLORIDE 0.9% 100 ML IV SCH (07:21)
[2018-12-04] MEDS: LOSARTAN 50 MG TABLET PO SCH (08:21)
[2018-12-04] MEDS: busPIRone 10 MG TABLET PO SCH ×3 (08:21→21:46)
[2018-12-04] MEDS: POTASSIUM CHLORIDE 20 MEQ/15 ML UDCUP PER TUBE PRN ×3 (08:22→15:00)
[2018-12-04] MEDS: RANITIDINE 150 MG/10 ML 30 ML BOTTLE PO SCH ×3 (08:24→21:46)
[2018-12-04] MEDS: MEROPENEM 1,000 MG in SODIUM CHLORIDE 0.9% 100 ML IV SCH (13:13)
[2018-12-04] MEDS: hydrALAZINE 20 MG/1 ML VIAL IV PRN (15:48)
[2018-12-04] MEDS: LACTOBACILLUS ACIDOPHILUS/BULGARICUS 1 PACKET PER TUBE SCH ×2 (15:49→21:46)
[2018-12-04] MEDS: ENOXAPARIN 40 MG/0.4 ML SYRINGE SUBCUT SCH (21:46)
[2018-12-05] MEDS: MEROPENEM 1,000 MG in SODIUM CHLORIDE 0.9% 100 ML IV SCH ×2 (00:37→12:02)
[2018-12-05] MEDS: INSULIN REGULAR 100 UNIT/ML SUBCUT SCH ×4 (00:41→18:25)
[2018-12-05] MEDS: ALBUTEROL/IPRATROPIUM 3 ML NEB RESP TX SCH ×4 (01:17→19:09)
[2018-12-05 03:59] LABS: ABG Base Excess -0.6 MMOL/L (-2.5-2.5); ABG HCO3 23.9 MMOL/L (20-26); ABG PCO2 35.4 MM HG (35-48); ABG PH 7.426 (7.35-7.45); Allen Test Positive; Pt O2 Delivery Device Ventilator
[2018-12-05] MEDS: methylPREDNISolone SOD SUC 40 MG/1 ML VIAL IV SCH ×2 (04:44→18:24)
[2018-12-05 05:40] LABS: Basophils % 0.1 % (0.0-0.8); Hematocrit 30.7 VOL% (35.7-47.0); Hemoglobin 9.8 GM/DL (12.0-16.0); Immature Granulocytes % 1.6 %; Immature Granulocytes Absolute 0.16 #; Lymphocytes % 9.4 % (21.3-54.2); Mean Corpuscular HGB Conc 31.9 GM/DL (32-36); Mean Corpuscular Hemoglobin 28 PG (27-34); Mean Corpuscular Volume 86.5 FL (87-102); Mean Platelet Volume 11.4 FL (9.6-12.0); Monocytes # 0.7 10*3/uL (0.11-0.8); Monocytes % 6.8 % (1.7-12.7); Neutrophils # 8.5 10*3/uL (1.4-7.4); Neutrophils % 82.1 % (38.7-73.9); Platelet Count 245 T/CUMM (130-400); Red Blood Count 3.55 MC/CUMM (3.8-5.5); Red Cell Distribution Width 14.3 % (9.3-17.3); White Blood Count 10.3 T/CUMM (4-12)
[2018-12-05 05:56] LABS: Calcium 8.8 MG/DL (8.5-10.1); Osmolality,Calculated 294.1 MOS/KG (273-304); Potassium 3.7 MMOL/L (3.5-5.1)
[2018-12-05] MEDS: PROPOFOL 1,000 MG/100 ML BOTTLE IV SCH ×3 (09:37→18:03)
[2018-12-05] MEDS: LACTOBACILLUS ACIDOPHILUS/BULGARICUS 1 PACKET PER TUBE SCH ×3 (09:52→21:40)
[2018-12-05] MEDS: busPIRone 10 MG TABLET PO SCH ×3 (09:52→21:40)
[2018-12-05] MEDS: LOSARTAN 50 MG TABLET PO SCH (09:52)
[2018-12-05] MEDS: POTASSIUM CHLORIDE 20 MEQ/15 ML UDCUP PER TUBE PRN (09:52)
[2018-12-05] MEDS: RANITIDINE 150 MG/10 ML 30 ML BOTTLE PO SCH ×2 (09:53→21:40)
[2018-12-05] MEDS: ENOXAPARIN 40 MG/0.4 ML SYRINGE SUBCUT SCH (21:40)
[2018-12-06] MEDS: ALBUTEROL/IPRATROPIUM 3 ML NEB RESP TX SCH ×2 (01:03→07:02)
[2018-12-06] MEDS: PROPOFOL 1,000 MG/100 ML BOTTLE IV SCH ×3 (01:26→09:03)
[2018-12-06] MEDS: INSULIN REGULAR 100 UNIT/ML SUBCUT SCH ×3 (01:40→11:27)
[2018-12-06] MEDS: MEROPENEM 1,000 MG in SODIUM CHLORIDE 0.9% 100 ML IV SCH (01:54)
[2018-12-06] MEDS: methylPREDNISolone SOD SUC 40 MG/1 ML VIAL IV SCH (03:10)
[2018-12-06 03:35] LABS: ABG Base Excess 3.3 MMOL/L (-2.5-2.5); ABG HCO3 27.1 MMOL/L (20-26); ABG Oxygen Saturation 98.1 % (95-100); ABG PCO2 38.2 MM HG (35-48); ABG PH 7.468 (7.35-7.45); ABG PO2 119.4 MM HG (80-95); ABG TCO2 28.2 MMOL/L (23-27); Allen Test Positive; Pt O2 Delivery Device Ventilator
[2018-12-06] MEDS: LACTOBACILLUS ACIDOPHILUS/BULGARICUS 1 PACKET PER TUBE SCH (08:58)
[2018-12-06] MEDS: busPIRone 10 MG TABLET PO SCH (08:58)
[2018-12-06] MEDS: LOSARTAN 50 MG TABLET PO SCH (08:58)
[2018-12-06] MEDS: RANITIDINE 150 MG/10 ML 30 ML BOTTLE PO SCH (08:59)
[2018-12-06] MEDS: hydrALAZINE 20 MG/1 ML VIAL IV PRN (09:27)
== END 2018-12-06 12:05 | DRG 207 ==
LOC: N.ED 08:00 → N.EDINP 09:20 → SUATTDRO 09:20 → N.ICU 10:20 → N.2E 11-24 17:52 → N.CC 11-27 14:42 → N.ICU 12-02 18:26
PROVIDERS: ADMIT Family Medicine; ATTEND Internal Medicine